=== PATIENT | female | born 1960 | race Caucasian/White ===

== ENCOUNTER 2017-12-21 05:21 | Inpatient (IN) | payer BC ==
[2017-12-21] MEDS ORDERED: SODIUM CHLORIDE 1,000 ML IV STA (05:22)
[2017-12-21] MEDS ORDERED: ONDANSETRON 4 MG/2 ML VIAL IVPB ONE (05:23)
[2017-12-21] MEDS ORDERED: ACETAMINOPHEN 1000 MG/100 ML VIAL (NON FORMULARY) IVPB ONE (05:23)
--- NOTE | 2017-12-21 05:29 | PDOC ---
History of Present Illness - General Chief Complaint: Pain, Acute Stated Complaint: R SIDED ABD PAIN Time Seen by Provider: 12/21/17 05:21 History Source: Patient Exam Limitations: No Limitations - History of Present Illness Initial Comments: 12/21/17 05:24 MS Loza is a 57-year-old female with no significant past medical history presented to emergency department with a complaint of severe right-sided upper abdominal pain. Patient states her symptoms began approximately 1 PM yesterday after having lunch (fish in lemon sauce). She noted a gradual onset of right upper quadrant pain. Pending is described as sharp, no radiation. Pt had dinner (chicken, sweet potatoes with butter) Pt had continued pain, took Tylenol late in the evening, was able to go to bed at approximately 10 PM. She awoke at 3 AM in order to use the bathroom, and noted severe right upper quadrant pain. Pain was so severe that it caused her to feel nauseous. No vomiting. No prior episodes like this. No fever or chills. No recent travel, lower extremity edema, immobilization, recent surgery. Pt admits to a history of occasional GERD She has noted epigastric discomfort/bloating for a few days PMH: Denies PSH: Bilateral replacements Medication: Nexium when necessary ALLERGIES: Penicillin --> reaction unknown, apparently lips turned blue after taking this at age 3 Patient is sensitive to narcotics Social: Denies alcohol, drug, cigarette use GENERAL/CONSTITUTIONAL: No: fever, chills, weakness, loss of appetite. HEAD, EYES, EARS, NOSE AND THROAT: No: change in vision, ear pain, discharge, sore throat, throat swelling. CARDIOVASCULAR: No: chest pain, lightheadedness, palpitations, syncope RESPIRATORY: No: cough, shortness of breath, wheezing, hemoptysis, stridor. GASTROINTESTINAL: yes: nausea, vomiting, abdominal pain No: diarrhea, constipation. GENITOURINARY: No: dysuria, hematuria, frequency, urgency, flank pain. MUSCULOSKELETAL: No: back pain SKIN : No: lesions, pallor, rash or easy bruising. NEUROLOGIC: No: headache, vertigo, paresthesias, weakness GENERAL: The patient is in no acute distress, pt appears to be very uncomfortable, tearful . HEAD: Normal EYES: PERRLA, EOMI, sclera anicteric, conjunctiva clear. ENT: Ears normal, nares patent, oropharynx clear without exudates. Moist mucous membranes. NECK: Normal range of motion, supple without lymphadenopathy, JVD, or masses. LUNGS: Breath sounds equal, clear to auscultation bilaterally. No wheezes, and no crackles. HEART:Regular rate and rhythm, normal S1 and S2 without murmur, rub or gallop. ABDOMEN: Soft, very tender in RUQ to palpation, (+) Collado's sign, epigastric tenderness, no tenderness in any other quadrant EXTREMITIES: Normal range of motion, no edema. No clubbing or cyanosis. No erythema, or tenderness. NEUROLOGICAL: Cranial nerves II through XII grossly intact. Normal speech. No focal neurological deficits. MUSCULOSKELETAL: Back non-tender to palpation, no CVA tenderness SKIN: Warm, Dry, normal turgor, no rashes or lesions noted. 12/21/17 07:08 Past History - Past Medical History Allergies/Adverse Reactions: Allergies Allergy/AdvReac Type Severity Reaction Status Date / Time Penicillins Allergy Issues Verified 12/21/17 09:48 with breathing Home Medications: Ambulatory Orders Levofloxacin [Levaquin] 750 mg PO DAILY 4 Days #4 tablet 12/24/17 Ondansetron HCl [Zofran] 4 mg PO BID PRN #10 tablet 12/24/17 metroNIDAZOLE [Flagyl -] 500 mg PO Q8H #21 tablet 12/24/17 HTN: Yes - Surgical History Orthopedic Surgery: Yes (bilateral TKR) - Suicide/Smoking/Psychosocial Hx Smoking History: Never smoked ED Treatment Course - LABORATORY CBC & Chemistry Diagram: 12/24/17 07:46 12/24/17 06:30 Medical Decision Making - Medical Decision Making 12/21/17 05:29 Ms Loza presented to emergency department with a complaint of severe right upper quadrant pain. Differential diagnosis includes but is not limited to: Biliary colic, cholangitis, pancreatitis, small bowel traction, colitis of limited section of ascending colon. I have entertained possibility of RLL Pneumonia or PE (given pt states pain worsens with deep breath), however, no hypoxia, no respiratory distress, no sputum production, no PE risk factors Will do: Labs UA Right upper quadrant ultrasound CT of the abdomen and pelvis Will give fluids Patient has sensitivity to Morphine, will start with Tylenol IV Will give Pepcid as well given gastritis Will give Zofran for nausea 12/21/17 05:25AM Topology Professor called 12/21/17 05:30AM Returned call, she is aware patient is in the ER 12/21/17 06:21 Pain is now 4/10 Labs pending 12/21/17 06:26 Laboratory Tests 12/21/17 05:30 Urine Ketones Negative Urine Blood 2+ H Urine Nitrite Negative Ur Leukocyte Esterase Trace 12/21/17 06:27 U/S called to scrap picker this patient 12/21/17 06:37 Laboratory Tests 12/21/17 12/21/17 05:30 05:50 WBC 10.5 H Hgb 13.9 Hct 40.9 Plt Count 187 Neutrophils % 83.2 H Ur Leukocyte Esterase Trace Urine WBC (Auto) 3 Urine RBC (Auto) 16 12/21/17 06:59 EKG: Sinus bradycardia, rate of 57 bpm, axis is normal, intervals are normal, no ST elevations or depressions, T waves are normal 12/21/17 07:22 Laboratory Tests 12/21/17 12/21/17 05:30 05:30 Sodium 139 Potassium 4.1 Chloride 100 Carbon Dioxide 25 Anion Gap 14 BUN 15 Creatinine 0.7 Random Glucose 99 AST 29 ALT 65 Creatine Kinase 90 Total Amylase 29 Lipase [address] pending Pt signed out to Dr Jon *DC/Admit/Observation/Transfer Diagnosis at time of Disposition: Diverticulitis large intestine - Discharge Dispostion Disposition: HOME Condition at time of disposition: Stable - Prescriptions - Referrals - Patient Instructions - Post Discharge Activity
[2017-12-21] MEDS ORDERED: FAMOTIDINE 20 MG/50 ML IVPB 0 MG/0 ML MG IVPB ONE (05:32)
[2017-12-21] MEDS ORDERED: ONDANSETRON 4 MG/2 ML VIAL ONE ×2 (05:32→12:04)
[2017-12-21] MEDS ORDERED: ACETAMINOPHEN INJECTION 100 ML IVPB ONE (05:32)
[2017-12-21] MEDS ORDERED: FAMOTIDINE 20 MG/50 ML IVPB 20 MG/50 ML MG IVPB ONE ×2 (05:33→09:36)
[2017-12-21 06:23] LABS: URINE APPEARANCE CLEAR; URINE BILIRUBIN NEGATIVE (NEGATIVE); URINE BLOOD 2+ (NEGATIVE); URINE COLOR LTYELLOW; URINE GLUCOSE (UA) NEGATIVE (NEGATIVE); URINE KETONE NEGATIVE (NEGATIVE); URINE LEUK ESTERASE TRACE (NEGATIVE); URINE NITRITE NEGATIVE (NEGATIVE); URINE PROTEIN NEGATIVE (NEGATIVE); URINE UROBILINOGEN NEGATIVE mg/dL (0.2-1.0)
[2017-12-21 06:25] LABS: BASO % 0.3 % (0-2.0); EOS % 0.9 % (0-4.5); HEMATOCRIT 40.9 % (32.4-45.2); HEMOGLOBIN 13.9 GM/dL (10.7-15.3); LYMPH % 9.6 % (8-40); MCH 30.3 pg (25.7-33.7); MEAN CELL VOLUME 89.1 fl (80-96); MEAN PLT VOLUME 9.8 fl (7.5-11.1); NEUT % 83.2 % (42.8-82.8); PLATELET COUNT 187 K/MM3 (134-434); RBC 4.59 M/mm3 (3.60-5.2); RDW 13.8 % (11.6-15.6); WHITE BLOOD COUNT 10.5 K/mm3 (4.0-10.0)
[2017-12-21 06:30] LABS: EPI CELLS RARE /HPF (FEW); INR 1.07 (0.82-1.09); PROTHROMBIN TIME (PATIENT) 12.1 SEC (9.98-11.88); URINE BACTERIA RARE /hpf (NONE SEEN); URINE MUCUS RARE
[2017-12-21 07:09] LABS: ALBUMIN 4.2 g/dl (3.4-5.0); ANION GAP 14 (8-16); BILIRUBIN,TOTAL 0.8 mg/dL (0.2-1.0); BLOOD UREA NITROGEN 15 mg/dL (7-18); CALCIUM 9.3 mg/dL (8.5-10.1); CHLORIDE 100 mmol/L (98-107); CO2 25 mmol/L (21-32); CREATININE 0.7 mg/dL (0.55-1.02); GLUCOSE,RANDOM 99 mg/dL (74-106); LIPASE 183 U/L (73-393); SGPT/ALT 65 U/L (12-78); SODIUM 139 mmol/L (136-145); TOT PROT 7.8 g/dl (6.4-8.2)
[2017-12-21 07:12] LABS: ALK PHOS 83 U/L (45-117)
[2017-12-21 07:16] LABS: POTASSIUM 4.1 mmol/L (3.5-5.1); SGOT/AST 29 U/L (15-37)
[2017-12-21] MEDS ORDERED: FAMOTIDINE IV 20 MG/12 ML VIAL IVPUSH SCH (10:00)
--- NOTE | 2017-12-21 10:19 | PDOC ---
*Physical Exam - Vital Signs Last Vital Signs Temp Pulse Resp BP Pulse Ox 98.1 F 63 18 115/68 98 12/21/17 09:15 12/21/17 09:15 12/21/17 09:15 12/21/17 09:15 12/21/17 09:15 ED Treatment Course - LABORATORY CBC & Chemistry Diagram: 12/21/17 05:50 12/21/17 05:30 - ADDITIONAL ORDERS Additional order review: Laboratory Results 12/21/17 12/21/17 12/21/17 05:30 05:30 05:30 PT with INR INR Sodium 139 Potassium 4.1 Chloride 100 Carbon Dioxide 25 Anion Gap 14 BUN 15 Creatinine 0.7 Creat Clearance w eGFR > 60 Random Glucose 99 Calcium 9.3 Total Bilirubin 0.8 AST 29 ALT 65 Alkaline Phosphatase 83 Creatine Kinase 90 Troponin I < 0.02 Total Protein 7.8 Albumin 4.2 Total Amylase 29 Lipase 183 Urine Color Ltyellow Urine Appearance Clear Urine pH 6.0 Ur Specific [place] 1.012 Urine Protein Negative Urine Glucose (UA) Negative Urine Ketones Negative Urine Blood 2+ H Urine Nitrite Negative Urine Bilirubin Negative Urine Urobilinogen Negative Ur Leukocyte Esterase Trace Urine WBC (Auto) 3 Urine RBC (Auto) 16 Ur Epithelial Cells Rare Urine Bacteria Rare Urine Mucus Rare 12/21/17 05:30 PT with INR 12.10 H INR 1.07 Sodium Potassium Chloride Carbon Dioxide Anion Gap BUN Creatinine Creat Clearance w eGFR Random Glucose Calcium Total Bilirubin AST ALT Alkaline Phosphatase Creatine Kinase Troponin I Total Protein Albumin Total Amylase Lipase Urine Color Urine Appearance Urine pH Ur Specific [place] Urine Protein Urine Glucose (UA) Urine Ketones Urine Blood Urine Nitrite Urine Bilirubin Urine Urobilinogen Ur Leukocyte Esterase Urine WBC (Auto) Urine RBC (Auto) Ur Epithelial Cells Urine Bacteria Urine Mucus 12/21/17 05:50 RBC 4.59 MCV 89.1 MCHC 34.0 RDW 13.8 MPV 9.8 Neutrophils % 83.2 H Lymphocytes % 9.6 Monocytes % 6.0 Eosinophils % 0.9 Basophils % 0.3 - Medications Given in the ED: ED Medications Discontinued Medications Generic Name Dose Route Start Last Admin Trade Name Freq PRN Reason Stop Dose Admin Acetaminophen 1,000 mg 12/21/17 05:23 12/21/17 05:31 Ofirmev Injection - IVPB 12/21/17 05:24 1,000 mg ONCE ONE Administration Ondansetron HCl 4 mg 12/21/17 05:23 12/21/17 05:31 Zofran Injection IVPB 12/21/17 05:24 4 mg ONCE ONE Administration Medical Decision Making - Medical Decision Making 12/21/17 10:08 Care received at 0700 Briefly, pt presents with RUQ and epigastric abd pain. Labs wnl, including normal LFTs and lipase/amylase. UA with 3+ blood, no evidence of infection. US reveals dilated CBD with GB sludge. CTAP reveals acute uncomplicated diverticulitis of the hepatic flexure. Levaquin and flagyl hanging. Dr. Conner from GI has been called to discuss CBD dilation and acute diverticulits. Spoke with Dr. Hope who is on his way in for evaluation. Case discussed with MICHA Barahona, pt accepted for admission to Dr. Paulson. 12/21/17 10:[address] Conner, she will be here in approx 30 mins. *DC/Admit/Observation/Transfer Diagnosis at time of Disposition: Diverticulitis large intestine - Discharge Dispostion Condition at time of disposition: Stable Admit: Yes - Referrals Referrals: Carlyle Hightower MD [Primary Care Provider] - - Patient Instructions - Post Discharge Activity - Attestations Physician Attestion: 12/21/17 10:20 I, Dr. Maria Teresa Jon MD, attest that this document has been prepared under my direction and personally reviewed by me in its entirety. I further attest, that it accurately reflects all work, treatment, procedures and medical decision -making performed by me.
--- NOTE | 2017-12-21 11:46 | CON.GI ---
Consult Consult Specialty:: gastroenterology Reason for Consultation:: abdominal pain. dypepsia - History of Present Illness Chief Complaint: abdominal pain History of Present Illness: Mrs. Loza is a 57 year old woman who presents to the ER with complaints of intermittent RUQ abdominal pain. Her symptoms worsened overnight prompting her to come to the ER for evaluation. She states she has also been experiencing epigastric abdominal discomfort, nausea and reflux as well as the sensation of food sticking in her lower esophagus. She has never had an endoscopic evaluation in the past. - History Source History Provided By: Patient Limitations to Obtaining History: No Limitations - Past Medical History Gastrointestinal: Yes: Diverticulosis, GERD - Past Surgical History Additional Surgical History: n/c - Alcohol/Substance Use Hx Alcohol Use: No History of Substance Use: reports: None - Smoking History Smoking history: Never smoked Have you smoked in the past 12 months: No Aproximately how many cigarettes per day: 0 - Social History Usual Living Arrangement: With Spouse Home Medications - Allergies Allergies/Adverse Reactions: Allergies Allergy/AdvReac Type Severity Reaction Status Date / Time Penicillins Allergy Issues Verified 12/21/17 09:48 with breathing - Home Medications Home Medications: Ambulatory Orders NK [No Known Home Medication] 02/21/17 Family Disease History - Family Disease History Family History: Unremarkable Review of Systems - Review of Systems Gastrointestinal: reports: Abdominal Pain, Bloating, Dysphagia, Indigestion, Nausea Physical Exam-GI Vital Signs: Vital Signs Temperature 98.1 F 12/21/17 09:15 Pulse Rate 63 12/21/17 09:15 Respiratory Rate 18 12/21/17 09:15 Blood Pressure 115/68 12/21/17 09:15 O2 Sat by Pulse Oximetry (%) 98 12/21/17 09:15 Constitutional: Yes: Well Nourished, No Distress, Calm Eyes: Yes: WNL HENT: Yes: WNL Cardiovascular: Yes: WNL, Regular Rate and Rhythm Respiratory: Yes: WNL, Regular ...Auscultate: Yes: Normoactive Bowel Sounds ...Palpate: Yes: Soft, Tenderness, Rebound (RUQ tenderness without rebound or guarding; nml bowel sounds) Extremities: Yes: WNL Edema: No Labs: CBC, BMP 12/21/17 05:50 12/21/17 05:30 INR, PTT INR 1.07 (0.82-1.09) 12/21/17 05:30 Imaging - Results Cat Scan: Report Reviewed, Image Reviewed Problem List - Problems (1) Dyspepsia and disorder of function of stomach Code(s): K31.9 - DISEASE OF STOMACH AND DUODENUM, UNSPECIFIED; R10.13 - EPIGASTRIC PAIN Assessment/Plan Impression: 1. Acute uncomplicated diverticulitis 2. Dyspepsia Recommendation: - clear liquid diet today ; if tolerates and is pain free advance to full liquid lactose free diet tomorrow - c/w levaquin and flagyl - course of 10 days - protonix 40 mg IV qd - 1/2 hr prior to breakfast daily - zofran prn - will need a diagnostic egd / colonoscopy in 6- 8 weeks. - will follow this patient closely with you.
[2017-12-21] MEDS ORDERED: ONDANSETRON 4 MG/2 ML VIAL IVPUSH ONE (12:08)
--- NOTE | 2017-12-21 12:32 | CONS ---
DATE OF CONSULTATION: DATE OF DICTATION: 12/21/2017 REASON FOR CONSULTATION: Abdominal pain. REFERRING PHYSICIAN: Maria Teresa Jon MD BRIEF HISTORY: This is a 57-year-old female whose history dates back approximately 1-/2 to 2 weeks ago. At that time, the patient had slight decrease in appetite and progressive bloating but no abdominal pain. Yesterday around 1 o'clock she developed sharp abdominal pain in the right upper quadrant just below the right costal margin. Patient thought she had pulled a muscle and as the day progressed the pain had worsened. The patient had dinner last evening (regular diet, however decreased amount). She had mild anorexia prior to dinner as well. Patient taking some Tylenol prior to going to bed which relieved the pain a little bit and she woke up early in the evening with worsening pain in the right side associated with nausea but no actual vomiting. Patient presented to the emergency room with these complaints. She underwent a CAT scan of the abdomen and pelvis; the CT demonstrated findings consistent with right-sided acute diverticulitis at the level of the hepatic flexure. There is no free fluid, no free air. She also had an ultrasound of the abdomen performed through the emergency room. The ultrasound demonstrated some sludge in the gallbladder. There is no evidence of acute cholecystitis. However, the truck driver supervisor noted a positive Collado sign and clinical correlation was needed. The patient had mild borderline dilatation of the common duct at 6 mm and further evaluation was suggested based on the sonography. She had a leukocytosis of roughly 10,000 at the time of admission. She has no bandemia. Her bicarbonate is normal at 25 and she had normal anion gap as well. Currently, the patient states her abdominal pain was improved with some IV Tylenol. She is not nauseous. She had no fever in the emergency room. PAST MEDICAL HISTORY: Patient denies coronary disease, hypertension and diabetes. PAST SURGICAL HISTORY: Bilateral knee replacements. MEDICATIONS: Nexium on an as-needed basis. ALLERGIES: PENICILLIN. SOCIAL HISTORY: Patient denies tobacco, alcohol and drug use. PHYSICAL EXAMINATION: HEENT: There is no icterus. Abdomen: Soft. There is right-sided abdominal tenderness just below the right costal margin. This is noted to be in the anterior axillary line. The abdominal pain is associated with some mild guarding without true rebound. The remainder of the abdominal examination is unremarkable. Incidentally noted is a small umbilical hernia. IMPRESSION/PLAN: Suspect right-sided acute diverticulitis. At this point, the patient clearly does not need urgent surgery and she demonstrates no sign of sepsis. There is no CT finding consistent with sepsis as well. The mild dilatation in the duct could be related to the findings from the colon. However, an ultrasound in the future once this process resolves should be performed. At that time, if the duct is still mildly dilated a further evaluation by GI should be done either via MRCP or ERCP. With regard to this acute problem, I think this should improve with medical management, patient should be at bowel rest and IV antibiotics (already started Levaquin and Flagyl). I will reevaluate this patient on a daily basis. Further recommendations will be made daily. Thank you for allowing me to participate in the care of your patient. MELISSA CHAN M.D. [id number] cc: The hospitalist service
--- NOTE | 2017-12-21 14:03 | HP ---
CHIEF COMPLAINT: abdominal pain PCP: Dr Hightower HISTORY OF PRESENT ILLNESS: Patient is a 57 y/o female with no significant past medical history, reports with severe sharp non-radiating right upper abdominal pain since 300am on this date. She reports the pain started yesterday, 12/20/17, but the pain gradually increased throughout the evening and has been unrelieved with tylenol. In addition, she reports feeling bloated with indigestion after eating for the past several months. patient denies any vomiting. She denies any recent travel or sick contacts. ER course was notable for: (1) wbc 10.5 (2)ct of abd/pelvis acute uncomplicated diverticulitis, diffuse heatic steatosis (3)ultrasound of abd, fatty livers vs hepatocellular disease, minimal sludge,no evidence of acute levar, borderline cbd dilation Recent Travel: none PAST MEDICAL HISTORY: see hpi PAST SURGICAL HISTORY: bilateral knee replacement Social History: , mother of 2 adult children, resides at home with Smoking:none Alcohol:none Drugs: none Family History: mother-->alive and well, irritable bowel father---> [place] Allergies Penicillins Allergy (Verified 12/21/17 09:48) Issues with breathing HOME MEDICATIONS: Home Medications Medication Instructions Recorded NK [No Known Home Medication] 02/21/17 REVIEW OF SYSTEMS CONSTITUTIONAL: Absent: fever, chills, diaphoresis, generalized weakness, malaise, loss of appetite, weight change HEENT: Absent: rhinorrhea, nasal congestion, throat pain, throat swelling, difficulty swallowing, mouth swelling, ear pain, eye pain, visual changes CARDIOVASCULAR: Absent: chest pain, syncope, palpitations, irregular heart rate, lightheadedness , peripheral edema RESPIRATORY: Absent: cough, shortness of breath, dyspnea with exertion, orthopnea, wheezing, stridor, hemoptysis GASTROINTESTINAL: present: abdominal pain, Absent: abdominal distension, nausea, vomiting, diarrhea, constipation, melena, hematochezia GENITOURINARY: Absent: dysuria, frequency, urgency, hesitancy, hematuria, flank pain, genital pain MUSCULOSKELETAL: Absent: myalgia, arthralgia, joint swelling, back pain, neck pain SKIN: Absent: rash, itching, pallor HEMATOLOGIC/IMMUNOLOGIC: Absent: easy bleeding, easy bruising, lymphadenopathy, frequent infections ENDOCRINE: Absent: unexplained weight gain, unexplained weight loss, heat intolerance, cold intolerance NEUROLOGIC: Absent: headache, focal weakness or paresthesias, dizziness, unsteady gait, seizure, mental status changes, bladder or bowel incontinence PSYCHIATRIC: Absent: anxiety, depression, suicidal or homicidal ideation, hallucinations. PHYSICAL EXAMINATION Vital Signs - 24 hr 12/21/17 12/21/17 12/21/17 05:23 09:15 12:00 Temperature 98 F 98.1 F Pulse Rate 88 Pulse Rate [ 63 60 Apical] Respiratory 14 18 18 Rate Blood Pressure 107/60 Blood Pressure 115/68 118/68 [Arm] O2 Sat by Pulse 100 98 98 Oximetry (%) GENERAL: Awake, alert, and fully oriented, in no acute distress. HEAD: Normal with no signs of trauma. EYES: Pupils equal, round and reactive to light, extraocular movements intact, sclera anicteric, conjunctiva clear. No lid lag. EARS, NOSE, THROAT: Ears normal, nares patent, oropharynx clear without exudates. Moist mucous membranes. NECK: Normal range of motion, supple without lymphadenopathy, JVD, or masses. LUNGS: Breath sounds equal, clear to auscultation bilaterally. No wheezes, and no crackles. No accessory muscle use. HEART: Regular rate and rhythm, normal S1 and S2 without murmur, rub or gallop. ABDOMEN: Soft, + rebound tenderness to epigastrium and right upper quadrent, not distended, normoactive bowel sounds, no guarding, no rebound, no masses. No hepatomegaly or splenomegaly. MUSCULOSKELETAL: Normal range of motion at all joints. No bony deformities or tenderness. No CVA tenderness. UPPER EXTREMITIES: 2+ pulses, warm, well-perfused. No cyanosis. No clubbing. No peripheral edema. LOWER EXTREMITIES: 2+ pulses, warm, well-perfused. No calf tenderness. No peripheral edema. NEUROLOGICAL: Cranial nerves II-XII intact. Normal speech. Normal gait. PSYCHIATRIC: Cooperative. Good eye contact. Appropriate mood and affect. SKIN: Warm, dry, normal turgor, no rashes or lesions noted, normal capillary refill. Laboratory Results - last 24 hr 12/21/17 12/21/17 12/21/17 05:30 05:30 05:30 WBC RBC Hgb Hct MCV MCH MCHC RDW Plt Count MPV Neutrophils % Lymphocytes % Monocytes % Eosinophils % Basophils % PT with INR 12.10 H INR 1.07 Sodium 139 Potassium 4.1 Chloride 100 Carbon Dioxide 25 Anion Gap 14 BUN 15 Creatinine 0.7 Creat Clearance w eGFR > 60 Random Glucose 99 Calcium 9.3 Total Bilirubin 0.8 AST 29 ALT 65 Alkaline Phosphatase 83 Creatine Kinase 90 Troponin I < 0.02 Total Protein 7.8 Albumin 4.2 Total Amylase Lipase 183 Urine Color Ltyellow Urine Appearance Clear Urine pH 6.0 Ur Specific [place] 1.012 Urine Protein Negative Urine Glucose (UA) Negative Urine Ketones Negative Urine Blood 2+ H Urine Nitrite Negative Urine Bilirubin Negative Urine Urobilinogen Negative Ur Leukocyte Esterase Trace Urine WBC (Auto) 3 Urine RBC (Auto) 16 Ur Epithelial Cells Rare Urine Bacteria Rare Urine Mucus Rare 12/21/17 12/21/17 05:30 05:50 WBC 10.5 H RBC 4.59 Hgb 13.9 Hct 40.9 MCV 89.1 MCH 30.3 MCHC 34.0 RDW 13.8 Plt Count 187 MPV 9.8 Neutrophils % 83.2 H Lymphocytes % 9.6 Monocytes % 6.0 Eosinophils % 0.9 Basophils % 0.3 PT with INR INR Sodium Potassium Chloride Carbon Dioxide Anion Gap BUN Creatinine Creat Clearance w eGFR Random Glucose Calcium Total Bilirubin AST ALT Alkaline Phosphatase Creatine Kinase Troponin I Total Protein Albumin Total Amylase 29 Lipase Urine Color Urine Appearance Urine pH Ur Specific [place] Urine Protein Urine Glucose (UA) Urine Ketones Urine Blood Urine Nitrite Urine Bilirubin Urine Urobilinogen Ur Leukocyte Esterase Urine WBC (Auto) Urine RBC (Auto) Ur Epithelial Cells Urine Bacteria Urine Mucus ASSESSMENT/PLAN: 1) GI acute diverticulitis - + tenderness noted on exam w/leukocytosis, start levaquin and flagyl - slight leukocytosis noted, strict monitoring, monitor fever curve - pt has never had a colonscopy appreciate GI input - surgery, Dr Carrillo consulted and following GERD - carafate and protonix f/e/n - clear liquid diet - replete lytes prn ppx - oob - scd dispo: requires inpatient admisison. Visit type - Emergency Visit Emergency Visit: Yes ED Registration Date: 12/21/17 Care time: The patient presented to the Emergency Department on the above date and was hospitalized for further evaluation of their emergent condition. - New Patient This patient is new to me today: Yes Date on this admission: 12/21/17 - Critical Care Critical Care patient: No Hospitalist Screening - Colonoscopy Questionnaire Colonoscopy Questionnaire: Colonoscopy Questionnaire - Patient: 50 - 75 years old and never had a screening colonoscopy: Yes History of colon or rectal polyps, or CA: No History of IBD, Crohn's disease or UC: No History of abdominal radiation therapy as a child: No - Relative: 1 with colon or rectal CA, or polyps at age 60 or younger: No Colon or rectal CA diagnosed at age 45 or younger: No Multiple relatives with colon or rectal CA: No - Outcome: Screening Result: Positive Screen
[2017-12-21 14:24] VITALS: BMI 29.2
[2017-12-21] MEDS ORDERED: SUCRALFATE 1 GM TABLET (FP) PO SCH (15:30)
[2017-12-21] MEDS: SUCRALFATE 1 GM/10 ML UNIT DOSE CUPS PO SCH ×3 (15:55→21:52)
[2017-12-21] MEDS ORDERED: MELATONIN 5 MG TABLETS PO PRN (16:05)
[2017-12-21] MEDS: ACETAMINOPHEN 325 MG TABLET (FP) PO PRN (17:08)
[2017-12-21] MEDS ORDERED: morphine CARPU-JECT 2 MG/1 ML DISP.SYRIN IVPUSH PRN (17:18)
[2017-12-21] MEDS: LACTOBACILLUS ACIDOPHILUS 1 EACH TAB (FP) PO SCH (17:59)
[2017-12-21] MEDS: PANTOPRAZOLE SODIUM 40 MG VIAL IVPUSH SCH (17:59)
[2017-12-21] MEDS: SODIUM CHLORIDE 1,000 ML IV SCH (17:59)
[2017-12-21] MEDS ORDERED: FAMOTIDINE 20 MG/50 ML IVPB 20 MG/50 ML MG IVPB SCH (22:00)
[2017-12-22] MEDS: ACETAMINOPHEN 325 MG TABLET (FP) PO PRN ×2 (05:25→12:59)
[2017-12-22 09:35] LABS: ALBUMIN 3.4 g/dl (3.5-5.0); ALK PHOS 53 U/L (32-92); ANION GAP 6 (8-16); BILIRUBIN,TOTAL 1.2 mg/dl (0.2-1.0); BLOOD UREA NITROGEN 12 mg/dl (7-18); CALCIUM 8.5 mg/dl (8.4-10.2); CHLORIDE 104 mmol/L (98-107); CO2 24 mmol/L (22-28); CREATININE 0.8 mg/dl (0.6-1.3); GLUCOSE,RANDOM 99 mg/dl (74-106); MAGNESIUM 1.7 mg/dL (1.8-2.4); POTASSIUM 3.5 mmol/L (3.5-5.1); SGOT/AST 18 U/L (10-42); SGPT/ALT 36 U/L (10-40); SODIUM 134 mmol/L (136-145); TOT PROT 6.3 g/dl (6.4-8.3)
[2017-12-22] MEDS: PANTOPRAZOLE SODIUM 40 MG VIAL IVPUSH SCH (09:40)
[2017-12-22] MEDS: SUCRALFATE 1 GM/10 ML UNIT DOSE CUPS PO SCH ×4 (09:40→21:43)
[2017-12-22] MEDS: LACTOBACILLUS ACIDOPHILUS 1 EACH TAB (FP) PO SCH (09:40)
--- NOTE | 2017-12-22 09:58 | EKG ---
Test Reason : Blood Pressure : / mmHG Vent. Rate : 057 BPM Atrial Rate : 057 BPM P-R Int : 142 ms QRS Dur : 082 ms QT Int : 438 ms P-R-T Axes : 017 005 009 degrees QTc Int : 426 ms SINUS BRADYCARDIA NO PREVIOUS ECGS AVAILABLE Confirmed by STEPHANIE CROCKETT MD ([id number]) on 12/22/2017 9:57:59 AM Referred By: MD CAPUTO Confirmed By:STEPHANIE CROCKETT MD
[2017-12-22] MEDS ORDERED: POTASSIUM CHLORIDE TABS 20 MEQ TABLET.ER (FP) PO ONE ×2 (10:03→13:00)
[2017-12-22] MEDS ORDERED: MAGNESIUM 1GM/D5W 100ML - 100 ML IVPB IVPB ONE ×2 (10:03→13:00)
--- NOTE | 2017-12-22 10:59 | PN ---
Progress Note (short form) - Note Progress Note: surgery pt seen and examined by Dr. Hope this morning. Started on liquids. pain has mostly resolved. afebrile abd- soft, minimal tenderness. nd. Plan- resolving right sided diverticulitis. cont medical managment. will be available.
--- NOTE | 2017-12-22 11:12 | PN ---
Physical Exam: SUBJECTIVE: Patient seen and examined, reports an improvement in abdominal pain , tolerating clear liquid diet, reports feeling hungry. OBJECTIVE: patient is a 57 y/o female, with no significant past medical history , patient was admitted from the emergency department for acute diverticulitis Vital Signs Period Temp Pulse Resp BP Sys/Santillan Pulse Ox Last 24 Hr 98.0 F-99.4 F 60-79 16-20 108-123/56-80 94-98 GENERAL: The patient is awake, alert, and fully oriented, in no acute distress. HEAD: Normal with no signs of trauma. EYES: PERRL, extraocular movements intact, sclera anicteric, conjunctiva clear. No ptosis. ENT: Ears normal, nares patent, oropharynx clear without exudates, moist mucous membranes. NECK: Trachea midline, full range of motion, supple. LUNGS: Breath sounds equal, clear to auscultation bilaterally, no wheezes, no crackles, no accessory muscle use. HEART: Regular rate and rhythm, S1, S2 without murmur, rub or gallop. ABDOMEN: Soft, mild diffuse abdominal tenderness, nondistended, normoactive bowel sounds, no guarding, no rebound, no hepatosplenomegaly, no masses. EXTREMITIES: 2+ pulses, warm, well-perfused, no edema. NEUROLOGICAL: Cranial nerves II through XII grossly intact. Normal speech, gait not observed. PSYCH: Normal mood, normal affect. SKIN: Warm, dry, normal turgor, no rashes or lesions noted Laboratory Results - last 24 hr 12/22/17 07:50 Sodium 134 L Potassium 3.5 Chloride 104 Carbon Dioxide 24 Anion Gap 6 L BUN 12 D Creatinine 0.8 Creat Clearance w eGFR > 60 Random Glucose 99 Calcium 8.5 Phosphorus 3.0 Magnesium 1.7 L Total Bilirubin 1.2 H D AST 18 D ALT 36 Alkaline Phosphatase 53 Total Protein 6.3 L Albumin 3.4 L CBC WBC 9.2 K/mm3 (4.0-10.8) D 12/22/17 07:50 RBC 4.01 M/mm3 (3.60-5.2) 12/22/17 07:50 Hgb 11.9 GM/dl (10.7-15.3) 12/22/17 07:50 Hct 35.6 % (32.4-45.2) 12/22/17 07:50 MCV 88.7 fl (80-96) 12/22/17 07:50 MCH 29.5 pg (25.7-33.7) 12/22/17 07:50 MCHC 33.3 g/dl (32.0-36.0) 12/22/17 07:50 RDW 13.1 % (11.6-15.6) 12/22/17 07:50 Plt Count 174 K/MM3 (134-434) 12/22/17 07:50 MPV 9.8 fl (7.5-11.1) 12/22/17 07:50 Neutrophils % 79.8 % (42.8-82.8) 12/22/17 07:50 Lymphocytes % 14.6 % (8-40) 12/22/17 07:50 Monocytes % 4.7 % (3.8-10.2) 12/22/17 07:50 Eosinophils % 0.6 % (0-4.5) 12/22/17 07:50 Basophils % 0.3 % (0-2.0) 12/22/17 07:50 Active Medications Generic Name Dose Route Start Last Admin Trade Name Freq PRN Reason Stop Dose Admin Acetaminophen 650 mg 12/21/17 14:07 12/22/17 05:25 Tylenol - PO 650 mg Q4H PRN Administration PAIN LEVEL 1-5 Metronidazole 500 mg in 100 mls @ 100 mls/hr 12/21/17 18:00 12/22/17 09:41 Flagyl 500mg Premixed Ivpb - IVPB 100 mls/hr Q8H-IV CHARLI Administration Levofloxacin 750 mg in 150 mls @ 150 mls/hr 12/22/17 10:00 12/22/17 09:40 Levaquin 750 Mg Premixed Ivpb - IVPB 150 mls/hr DAILY CHARLI Administration Sodium Chloride 1,000 mls @ 75 mls/hr 12/21/17 17:30 12/21/17 17:59 Normal Saline - IV 75 mls/hr ASDIR CHARLI Administration Lactobacillus Acidophilus 1 tab 12/21/17 17:15 12/22/17 09:40 Bacid - PO 1 tab DAILY CHARLI Administration Melatonin 5 mg 12/21/17 16:05 Melatonin PO HS PRN INSOMNIA Morphine Sulfate 2 mg 12/21/17 17:18 Morphine Injection - IVPUSH Q6H PRN PAIN LEVEL 7 - 10 Pantoprazole Sodium 40 mg 12/21/17 17:15 12/22/17 09:40 Protonix Iv IVPUSH 40 mg DAILY CHARLI Administration Sucralfate 1 gm 12/21/17 15:45 12/22/17 09:40 Carafate Oral Suspension - PO 1 gm QID CHARLI Administration Microbiology 12/21/17 05:30 Urine - Urine Clean Catch Urine Culture - Final NO GROWTH OBTAINED IMAGING ct of abd/pelvis acute uncomplicated diverticulitis, diffuse heatic steatosis ultrasound of abd, fatty livers vs hepatocellular disease, minimal sludge,no evidence of acute levar, borderline cbd dilation ASSESSMENT/PLAN: 1) GI acute diverticulitis - leukocytosis resolved, pt is afebrile continue levaquin and flagyl - tolerating clear liquid diet, will advance to full - Dr Iqbal, GI consulted and following, patient will require outpatient colonscopy and endoscopy - surgery, Dr Carrillo consulted and following GERD - much improved after carafate and protonix f/e/n - full liquid diet - replete magnesium ppx - oob - scd dispo: requires inpatient admisison. Visit type - Emergency Visit Emergency Visit: Yes ED Registration Date: 12/21/17 Care time: The patient presented to the Emergency Department on the above date and was hospitalized for further evaluation of their emergent condition. - New Patient This patient is new to me today: No - Critical Care Critical Care patient: No - Discharge Referral Referred to [facility] Med P.C.: No
[2017-12-22 11:23] LABS: BASO % 0.3 % (0-2.0); EOS % 0.6 % (0-4.5); HEMATOCRIT 35.6 % (32.4-45.2); HEMOGLOBIN 11.9 GM/dl (10.7-15.3); LYMPH % 14.6 % (8-40); MCH 29.5 pg (25.7-33.7); MCHC 33.3 g/dl (32.0-36.0); MEAN CELL VOLUME 88.7 fl (80-96); MEAN PLT VOLUME 9.8 fl (7.5-11.1); MONO % 4.7 % (3.8-10.2); NEUT % 79.8 % (42.8-82.8); PLATELET COUNT 174 K/MM3 (134-434); RBC 4.01 M/mm3 (3.60-5.2); RDW 13.1 % (11.6-15.6); WHITE BLOOD COUNT 9.2 K/mm3 (4.0-10.8)
[2017-12-22] MEDS ORDERED: MAGNESIUM SULFATE IN WATER 2 GM/50 ML IVPB IVPB ONE (13:30)
--- NOTE | 2017-12-22 17:36 | PN ---
Progress Note, Physician Chief Complaint: complains of nausea - after abx; her pain has improved - Current Medication List Current Medications: Active Medications Acetaminophen (Tylenol -) 650 mg PO Q4H PRN PRN Reason: PAIN LEVEL 1-5 Last Admin: 12/22/17 12:59 Dose: 650 mg Metronidazole (Flagyl 500mg Premixed Ivpb -) 500 mg in 100 mls @ 100 mls/hr IVPB Q8H-IV [facility] Last Admin: 12/22/17 09:41 Dose: 100 mls/hr Levofloxacin (Levaquin 750 Mg Premixed Ivpb -) 750 mg in 150 mls @ 150 mls/hr IVPB DAILY [facility] Last Admin: 12/22/17 09:40 Dose: 150 mls/hr Sodium Chloride (Normal Saline -) 1,000 mls @ 75 mls/hr IV ASDIR [facility] Last Admin: 12/21/17 17:59 Dose: 75 mls/hr Lactobacillus Acidophilus (Bacid -) 1 tab PO DAILY [facility] Last Admin: 12/22/17 09:40 Dose: 1 tab Melatonin (Melatonin) 5 mg PO HS PRN PRN Reason: INSOMNIA Morphine Sulfate (Morphine Injection -) 2 mg IVPUSH Q6H PRN PRN Reason: PAIN LEVEL 7 - 10 Pantoprazole Sodium (Protonix Iv) 40 mg IVPUSH DAILY [facility] Last Admin: 12/22/17 09:40 Dose: 40 mg Sucralfate (Carafate Oral Suspension -) 1 gm PO QID [facility] Last Admin: 12/22/17 13:35 Dose: 1 gm - Objective Vital Signs: Vital Signs Temperature 97.6 F 12/22/17 14:20 Pulse Rate 77 12/22/17 14:20 Respiratory Rate 16 12/22/17 14:20 Blood Pressure 128/66 12/22/17 14:20 O2 Sat by Pulse Oximetry (%) 99 12/22/17 14:20 Constitutional: Yes: Well Nourished Eyes: Yes: WNL HENT: Yes: WNL Neck: Yes: WNL Cardiovascular: Yes: WNL Respiratory: Yes: WNL Gastrointestinal: Yes: Other (non tender , nml bowel sounds) Labs: CBC, BMP 12/22/17 07:50 12/22/17 07:50 INR, PTT INR 1.07 (0.82-1.09) 12/21/17 05:30 Problem List - Problems (1) Dyspepsia and disorder of function of stomach Code(s): K31.9 - DISEASE OF STOMACH AND DUODENUM, UNSPECIFIED; R10.13 - EPIGASTRIC PAIN (2) Diverticulitis large intestine Code(s): K57.32 - DVTRCLI OF LG INT W/O PERFORATION OR ABSCESS W/O BLEEDING Assessment/Plan Recommendation: - c/w clear liquid diet today; zofran prn added to the regimen ; advance to full liquid diet Monday (lactose free) ; If tolerates plan to advance to low residue lactose free diet by Monday. - c/w levaquin and flagyl - course of 10 days - protonix 40 mg IV qd - 1/2 hr prior to breakfast daily - will need a diagnostic egd / colonoscopy in 6- 8 weeks.
[2017-12-22] MEDS: SODIUM CHLORIDE 1,000 ML IV SCH (17:52)
[2017-12-22] MEDS: ONDANSETRON 4 MG/2 ML VIAL IVPB PRN (17:52)
[2017-12-23] MEDS: ONDANSETRON 4 MG/2 ML VIAL IVPB PRN (03:06)
[2017-12-23 08:56] LABS: BASO % 0.6 % (0-2.0); EOS % 1.3 % (0-4.5); HEMATOCRIT 36.8 % (32.4-45.2); HEMOGLOBIN 12.7 GM/dl (10.7-15.3); LYMPH % 19.5 % (8-40); MCH 30.4 pg (25.7-33.7); MCHC 34.4 g/dl (32.0-36.0); MEAN CELL VOLUME 88.2 fl (80-96); MEAN PLT VOLUME 9.2 fl (7.5-11.1); MONO % 4.6 % (3.8-10.2); PLATELET COUNT 194 K/MM3 (134-434); RBC 4.18 M/mm3 (3.60-5.2); RDW 12.9 % (11.6-15.6); WHITE BLOOD COUNT 6.3 K/mm3 (4.0-10.8)
[2017-12-23 09:21] LABS: ALBUMIN 3.5 g/dl (3.5-5.0); ALK PHOS 56 U/L (32-92); ANION GAP 9 (8-16); BILIRUBIN,TOTAL 0.6 mg/dl (0.2-1.0); BLOOD UREA NITROGEN 11 mg/dl (7-18); CALCIUM 8.8 mg/dl (8.4-10.2); CHLORIDE 106 mmol/L (98-107); CO2 22 mmol/L (22-28); CREATININE 0.8 mg/dl (0.6-1.3); GLUCOSE,RANDOM 134 mg/dl (74-106); MAGNESIUM 1.8 mg/dL (1.8-2.4); PHOSPHOROUS 2.5 mg/dl (2.5-4.6); POTASSIUM 3.8 mmol/L (3.5-5.1); SGOT/AST 19 U/L (10-42); SGPT/ALT 32 U/L (10-40); SODIUM 137 mmol/L (136-145); TOT PROT 6.6 g/dl (6.4-8.3)
[2017-12-23] MEDS: PANTOPRAZOLE SODIUM 40 MG VIAL IVPUSH SCH (09:39)
[2017-12-23] MEDS: LACTOBACILLUS ACIDOPHILUS 1 EACH TAB (FP) PO SCH (09:43)
[2017-12-23] MEDS: SUCRALFATE 1 GM/10 ML UNIT DOSE CUPS PO SCH ×4 (09:49→21:19)
--- NOTE | 2017-12-23 11:12 | PN ---
Physical Exam: SUBJECTIVE: Patient seen and examined this AM. States she is feeling much better and only has bits of nausea from ABT. OBJECTIVE: Vital Signs Period Temp Pulse Resp BP Sys/Santillan Pulse Ox Last 24 Hr 97.6 F-98.2 F 56-77 16-20 98-128/59-66 97-100 GENERAL: The patient is awake, alert, and fully oriented, in no acute distress. HEAD: Normal with no signs of trauma. LUNGS: Breath sounds equal, clear to auscultation bilaterally, HEART: Regular rate and rhythm, S1, S2 without murmur, rub or gallop. ABDOMEN: Soft, nontender, nondistended, normoactive bowel sounds, no guarding, no rebound, no hepatosplenomegaly, no masses. EXTREMITIES: 2+ pulses, warm, well-perfused, no edema. NEUROLOGICAL: Cranial nerves II through XII grossly intact. Normal speech, gait not observed. PSYCH: Normal mood, normal affect. SKIN: Warm, dry, normal turgor, no rashes or lesions noted Laboratory Results - last 24 hr 12/22/17 12/23/17 12/23/17 07:50 08:45 08:45 WBC 9.2 D 6.3 D RBC 4.01 4.18 Hgb 11.9 12.7 Hct 35.6 36.8 MCV 88.7 88.2 MCH 29.5 30.4 MCHC 33.3 34.4 RDW 13.1 12.9 Plt Count 174 194 MPV 9.8 9.2 Neutrophils % 79.8 74.0 Lymphocytes % 14.6 19.5 Monocytes % 4.7 4.6 Eosinophils % 0.6 1.3 Basophils % 0.3 0.6 Sodium 137 Potassium 3.8 Chloride 106 Carbon Dioxide 22 Anion Gap 9 BUN 11 Creatinine 0.8 Creat Clearance w eGFR > 60 Random Glucose 134 H D Calcium 8.8 Phosphorus 2.5 Magnesium 1.8 Total Bilirubin 0.6 D AST 19 ALT 32 Alkaline Phosphatase 56 Total Protein 6.6 Albumin 3.5 Active Medications Generic Name Dose Route Start Last Admin Trade Name Freq PRN Reason Stop Dose Admin Acetaminophen 650 mg 12/21/17 14:07 12/22/17 12:59 Tylenol - PO 650 mg Q4H PRN Administration PAIN LEVEL 1-5 Metronidazole 500 mg in 100 mls @ 100 mls/hr 12/21/17 18:00 03/24/18 09:40 Flagyl 500mg Premixed Ivpb - IVPB 100 mls/hr Q8H-IV CHARLI Administration Levofloxacin 750 mg in 150 mls @ 150 mls/hr 12/22/17 10:00 12/23/17 09:40 Levaquin 750 Mg Premixed Ivpb - IVPB 150 mls/hr DAILY [facility] Administration Sodium Chloride 1,000 mls @ 75 mls/hr 12/21/17 17:30 12/22/17 17:52 Normal Saline - IV 75 mls/hr ASDIR CHARLI Administration Lactobacillus Acidophilus 1 tab 12/21/17 17:15 12/23/17 09:43 Bacid - PO 1 tab DAILY CHARLI Administration Melatonin 5 mg 12/21/17 16:05 Melatonin PO HS PRN INSOMNIA Morphine Sulfate 2 mg 12/21/17 17:18 Morphine Injection - IVPUSH Q6H PRN PAIN LEVEL 7 - 10 Ondansetron HCl 4 mg 12/22/17 17:31 12/23/17 03:06 Zofran Injection IVPB 4 mg Q6H PRN Administration NAUSEA AND/OR VOMITING Pantoprazole Sodium 40 mg 12/21/17 17:15 12/23/17 09:39 Protonix Iv IVPUSH 40 mg DAILY CHARLI Administration Sucralfate 1 gm 12/21/17 15:45 12/23/17 09:49 Carafate Oral Suspension - PO 1 gm QID CHARLI Administration ASSESSMENT/PLAN: 1) GI acute diverticulitis - leukocytosis resolved, pt is afebrile continue levaquin and flagyl - tolerating full liquid lactose free diet today - Dr Iqbal, GI consulted and following, patient will require outpatient colonscopy and endoscopy - surgery, Dr Carrillo consulted and following GERD - much improved after carafate and protonix -zofran for nausea PRN f/e/n - full liquid diet and advancing tomorrow AM - replete electrolytes PRN ppx - oob - scd dispo: requires inpatient admisison. Visit type - Emergency Visit Emergency Visit: Yes ED Registration Date: 12/21/17 Care time: The patient presented to the Emergency Department on the above date and was hospitalized for further evaluation of their emergent condition. - New Patient This patient is new to me today: Yes Date on this admission: 12/23/17 - Critical Care Critical Care patient: No - Discharge Referral Referred to [facility] Med P.C.: No
[2017-12-23] MEDS ORDERED: NAPH,MB-DB/K PH,MBDB POWDER PACKET PO ONE (11:13)
[2017-12-23] MEDS: SODIUM CHLORIDE 1,000 ML IV SCH (17:53)
[2017-12-24] MEDS: ONDANSETRON 4 MG/2 ML VIAL IVPB PRN (01:14)
[2017-12-24 06:35] VITALS: BP 116/59; PULSE 60; TEMP 97.7
--- NOTE | 2017-12-24 08:17 | DS ---
Physical Exam: SUBJECTIVE: Patient seen and examined this morning. She is feeling well with no pain on inspiration or on palpation. + flatus and minimal BM as she's been taking in minimal po intake OBJECTIVE: Vital Signs Period Temp Pulse Resp BP Sys/Santillan Pulse Ox Last 24 Hr 97.6 F-97.8 F 57-65 16-16 112-118/59-67 98-100 PHYSICAL EXAM GENERAL: The patient is awake, alert, and fully oriented, in no acute distress. HEAD: Normal with no signs of trauma. LUNGS: Breath sounds equal, clear to auscultation bilaterally, HEART: Regular rate and rhythm, S1, S2 ABDOMEN: Soft, nontender, nondistended, normoactive bowel sounds, no guarding, no rebound, no hepatosplenomegaly, no masses. EXTREMITIES: 2+ pulses, warm, well-perfused, no edema. NEUROLOGICAL: Cranial nerves II through XII grossly intact. Normal speech, gait not observed. PSYCH: Normal mood, normal affect. SKIN: Warm, dry, normal turgor, no rashes or lesions noted. LABS Laboratory Results - last 24 hr 12/23/17 12/23/17 08:45 08:45 WBC 6.3 D RBC 4.18 Hgb 12.7 Hct 36.8 MCV 88.2 MCH 30.4 MCHC 34.4 RDW 12.9 Plt Count 194 MPV 9.2 Neutrophils % 74.0 Lymphocytes % 19.5 Monocytes % 4.6 Eosinophils % 1.3 Basophils % 0.6 Sodium 137 Potassium 3.8 Chloride 106 Carbon Dioxide 22 Anion Gap 9 BUN 11 Creatinine 0.8 Creat Clearance w eGFR > 60 Random Glucose 134 H D Calcium 8.8 Phosphorus 2.5 Magnesium 1.8 Total Bilirubin 0.6 D AST 19 ALT 32 Alkaline Phosphatase 56 Total Protein 6.6 Albumin 3.5 HOSPITAL COURSE: Date of Admission:12/21/17 Date of Discharge: 12/24/17 This 57 yr old female is admitted for diverticulitis without perf or abscess. She has received IV antibiotics for 3 days and is feeling much better. She started tolerating a low residue diet, ambulating and + BM started. At this time she will be discharged to continue with po antibiotics and probiotics as prescribed with follow up in her PMD and GI physicians' office. Minutes to complete discharge: 45 Discharge Summary Reason For Visit: DIVERTICULITIS OF LARGE INTESTINE Current Active Problems Diverticulitis large intestine (Acute) Dyspepsia and disorder of function of stomach (Acute) Condition: Stable - Instructions Diet, Activity, Other Instructions: Discharge instructions: 1. Please follow up with your primary doctor and let him know you have been hospitalized for a finding of diverticulitis without abscess. 2. Please follow up with the GI specialist. Call for this appointment this week. You will need to schedule a colonoscopy as well as per his recommendations. 3. Your diet should continue with a bland, low residue diet for the next couple of days adding in food items slowly to see how you tolerating them. Avoid nuts, popcorn, and foods that have a hard time breaking down in the GI track. 4. Any fever, increase abdominal pain, nausea, vomiting, excessive diarrhea or constipation, please return to the ER immediately. 5. Continue to take your antibiotics as prescribed. Do not take in any alcohol while on these medications. You can take them with foods. 6. You should add on a probiotic which you can purchase over the counter in your local pharmacy. 7. Drink plenty of water throughout the day. Referrals: Carlyle Hightower MD [Primary Care Provider] - Disposition: HOME - Home Medications Comprehensive Discharge Medication List: Ambulatory Orders NK [No Known Home Medication] 02/21/17 Problem List - Problems (1) Diverticulitis large intestine Assessment/Plan: 1) GI acute diverticulitis - leukocytosis resolved, pt is afebrile continue levaquin and flagyl at home - tolerating a low residue diet - Dr Iqbal GI to follow pt as an outpatient GERD - nexium or zantac at home PRN -zofran for nausea PRN dispo: discharge today Code(s): K57.32 - DVTRCLI OF LG INT W/O PERFORATION OR ABSCESS W/O BLEEDING Qualifiers: Diverticulitis bleeding: without bleeding Diverticulitis complication: without perforation or abscess Qualified Code(s): K57.32 - Diverticulitis of large intestine without perforation or abscess without bleeding This patient is new to me today: No Emergency Visit: Yes ED Registration Date: 12/21/17 Care time: The patient presented to the Emergency Department on the above date and was hospitalized for further evaluation of their emergent condition. Critical Care patient: No - Discharge Referral Referred to [facility] Med P.C.: No Physician Referral: Carlyle Hightower MD (Int Med)
[2017-12-24 09:03] LABS: BASO % 0.4 % (0-2.0); EOS % 2.4 % (0-4.5); HEMATOCRIT 36.5 % (32.4-45.2); HEMOGLOBIN 12.3 GM/dl (10.7-15.3); LYMPH % 25.2 % (8-40); MCHC 33.8 g/dl (32.0-36.0); MEAN CELL VOLUME 88.7 fl (80-96); MEAN PLT VOLUME 9.2 fl (7.5-11.1); MONO % 5.1 % (3.8-10.2); NEUT % 66.9 % (42.8-82.8); PLATELET COUNT 215 K/MM3 (134-434); RBC 4.11 M/mm3 (3.60-5.2); RDW 13.1 % (11.6-15.6); WHITE BLOOD COUNT 6.1 K/mm3 (4.0-10.8)
[2017-12-24 09:11] LABS: ALBUMIN 3.6 g/dl (3.5-5.0); ALK PHOS 55 U/L (32-92); ANION GAP 7 (8-16); BLOOD UREA NITROGEN 11 mg/dl (7-18); CALCIUM 8.8 mg/dl (8.4-10.2); CHLORIDE 105 mmol/L (98-107); CO2 25 mmol/L (22-28); CREATININE 0.9 mg/dl (0.6-1.3); GLUCOSE,RANDOM 97 mg/dl (74-106); POTASSIUM 3.9 mmol/L (3.5-5.1); SGOT/AST 20 U/L (10-42); SGPT/ALT 30 U/L (10-40); SODIUM 137 mmol/L (136-145); TOT PROT 6.5 g/dl (6.4-8.3)
[2017-12-24] MEDS: PANTOPRAZOLE SODIUM 40 MG VIAL IVPUSH SCH (09:21)
[2017-12-24] MEDS: SUCRALFATE 1 GM/10 ML UNIT DOSE CUPS PO SCH (09:21)
[2017-12-24] MEDS ORDERED: DOCUSATE SODIUM 100 MG CAPSULE (FP) PO ONE (09:29)
[2017-12-24] MEDS: LACTOBACILLUS ACIDOPHILUS 1 EACH TAB (FP) PO SCH (09:30)
[2017-12-24 09:37] LABS: BILIRUBIN,TOTAL < 0.5 mg/dl (0.2-1.0)
== END 2017-12-24 10:15 | disposition home or self-care (01) | DRG 392 ==
LOC: FER 05:21 → FM/S 13:25
PROVIDERS: ADMIT Internal Medicine; ATTEND Nurse Practitioner Family
DX: K57.32 Diverticulitis of large intestine without perforation or abscess without bleeding (principal); K21.9 Gastro-esophageal reflux disease without esophagitis; K31.9 Disease of stomach and duodenum, unspecified; R10.13 Epigastric pain; D72.829 Elevated white blood cell count, unspecified
CPT/HCPCS: 36415; 74177-TC; 76705-TC; 80053; 81003; 81015; 82150; 82550; 83690; 83735; 84100; 84484; 85025; 85610; 87086; 93005; 99284-25; J0131; J7030

== ENCOUNTER 2018-02-14 10:51 | Emergency (ER) | payer BC ==
[2018-02-14 10:56] VITALS: BP 135/80; PULSE 83; TEMP 98.7
[2018-02-14] MEDS ORDERED: ACETAMINOPHEN 325 MG TABLET (FP) ONE (11:43)
[2018-02-14] MEDS ORDERED: ACETAMINOPHEN 325 MG TABLET (FP) PO ONE (11:43)
--- NOTE | 2018-02-14 11:45 | PDOC ---
History of Present Illness - General Chief Complaint: Pain, Acute Stated Complaint: FALL Time Seen by Provider: 02/14/18 10:55 - History of Present Illness Initial Comments: 02/14/18 13:56 Chief complaint: Multiple injuries History of present illness: Patient fell last night on a wet floor, impacting her right hip and buttock area. Complains of persistent pain and stiffness in the right lower back, right hip. Also complains of pain and increased swelling of the left knee, status post knee replacement. Review of systems: Denies pain or injury to the head neck chest abdomen or other extremities. Denies loss of consciousness. Denies chest pain, shortness of breath, abdominal pain, nausea, vomiting, diarrhea, visual or focal neurologic symptoms, urinary tract symptoms, vaginal bleeding or discharge. Admits pain with ambulation, especially in the right hip, but denies distal numbness tingling or weakness. Past medical history: Bilateral knee replacements due to osteoarthritis in 2010. Otherwise healthy. Social/family history reviewed and noncontributory Physical exam: Alert and oriented well-developed well-nourished no acute distress cheerful and cooperative. Afebrile, vital signs normal Head atraumatic. PERRLA, fundi benign, ENT clear Neck without tenderness or deformity, full range of motion without pain. No bruits masses or nodes Lungs clear to P&A, full breath sounds throughout bilaterally, no rib cage or chest wall tenderness or deformity CV regular without murmur rub or gallop pulses full and symmetric no JVD or edema no bruits Abdomen soft nontender without mass or organomegaly. No CVAT Neurological C2 to 12 intact. Strength full and symmetric. No focal sensory or motor deficits. Gait is mildly impaired has a pain in the right hip Extremities: There is no deformity or bruising of the right hip. There is good range of motion, except at the extreme of internal rotation, with there is some pain or limitation. The left knee shows mild soft tissue swelling, no effusion, no deformity, patella and patellar retinaculum intact and nontender, no stress tenderness or laxity of MCL or LCL, Lockman negative no popliteal masses or tenderness. No posterior calf tenderness or cords. LS spine: No point tenderness over the vertebrae. Maintenance of normal lumbar lordosis. No inflammation or bruising. Impression: Multiple contusions, knee sprain, rule out fracture Plan: X-rays of the left knee, right hip, and LS-spine are negative. Patient undergoing further evaluation by Dr. Dodson, supervisory it specialist, who was called from the operating room. He sees no sign of serious injury. Toradol administered for symptomatic relief. Rest, Tylenol or Motrin, and orthopedic follow-up as directed. Adequately ambulatory upon discharge to follow-up as recommended. Improved after Toradol administration Past History - Past Medical History Allergies/Adverse Reactions: Allergies Allergy/AdvReac Type Severity Reaction Status Date / Time Penicillins Allergy Issues Verified 02/14/18 10:52 with breathing codeine AdvReac Vomiting Verified 02/14/18 10:52 Home Medications: Ambulatory Orders Pantoprazole Sodium [Protonix -] 40 mg PO DAILY 02/13/18 Anemia: No Asthma: No Cancer: No Cardiac Disorders: No (hx of MVP) CVA: No COPD: No CHF: No Dementia: No Diabetes: No GI Disorders: Yes (Diverticulitis) Disorders: No HTN: No Hypercholesterolemia: No Liver Disease: No Seizures: No Thyroid Disease: No - Surgical History Abdominal Surgery: No Appendectomy: No Cardiac Surgery: No Cholecystectomy: No Lung Surgery: No Neurologic Surgery: No Orthopedic Surgery: Yes (bilateral TKR) - Suicide/Smoking/Psychosocial Hx Smoking History: Never smoked Have you smoked in the past 12 months: No Number of Cigarettes Smoked Daily: 0 Hx Alcohol Use: No Drug/Substance Use Hx: No Substance Use Type: None Hx Substance Use Treatment: No *Physical Exam - Vital Signs Last Vital Signs Temp Pulse Resp BP Pulse Ox 98.7 F 83 18 135/80 100 02/14/18 10:52 02/14/18 10:52 02/14/18 10:52 02/14/18 10:52 02/14/18 10:52 *DC/Admit/Observation/Transfer Diagnosis at time of Disposition: Multiple contusions Knee sprain Qualifiers: Encounter type: initial encounter Involved ligament of knee: unspecified ligament Laterality: left Qualified Code(s): S83.92XA - Sprain of unspecified site of left knee, initial encounter - Discharge Dispostion Disposition: HOME Condition at time of disposition: Stable Decision to Admit order: No - Referrals Referrals: Rajinder Alejandro MD [Staff Physician] - - Patient Instructions Printed Discharge Instructions: DI for Knee Sprain, DI for Contusion Additional Instructions: Rest, ice, Tylenol or Advil as needed. See orthopedist if symptoms persist 3-5 days for recheck. Return to ER if symptoms worsen or additional serious symptoms develop. - Post Discharge Activity
[2018-02-14] MEDS ORDERED: KETOROLAC TROMETHAMINE 60 MG/2 ML VIAL IM ONE (13:00)
[2018-02-14] MEDS ORDERED: KETOROLAC TROMETHAMINE 60 MG/2 ML VIAL ONE (13:07)
== END 2018-02-14 13:20 | disposition home or self-care (01) ==
LOC: FER 10:51
PROC: 3E0233Z Introduction of Anti-inflammatory into Muscle, Percutaneous Approach (ICD-10-PCS; principal; 2018-02-14)
DX: S83.92XA Sprain of unspecified site of left knee, initial encounter (principal); T14.8XXA Other injury of unspecified body region, initial encounter; W01.0XXA Fall on same level from slipping, tripping and stumbling without subsequent striking against object, initial encounter; Y93.89 Activity, other specified; Y92.9 Unspecified place or not applicable; Z96.653 Presence of artificial knee joint, bilateral; K57.90 Diverticulosis of intestine, part unspecified, without perforation or abscess without bleeding
CPT/HCPCS: 72100-TC-FY; 73523-TC-FY; 73560-TC-LT-FY; 99283-25

== ENCOUNTER 2018-02-17 10:42 | Emergency (ER) | payer BC ==
[2018-02-17 10:53] VITALS: BP 128/51; PULSE 78; TEMP 98.6; BMI 29.9
[2018-02-17] MEDS ORDERED: SODIUM CHLORIDE 1,000 ML IV STA ×2 (10:58→12:14)
--- NOTE | 2018-02-17 10:58 | PDOC ---
History of Present Illness - General Chief Complaint: Nausea/Vomiting Stated Complaint: GI UPSET Time Seen by Provider: 02/17/18 10:58 - History of Present Illness Initial Comments: 02/17/18 10:59 Chief complaint: Vomiting and diarrhea History of present illness: Nausea and vomiting Monday night, extending into morning. This has resolved. However, diarrhea has developed, with multiple loose yellow watery stools for several days. Taking by mouth fluids but still feels "dehydrated". Review of systems: No fever/chills, headache, URI symptoms, sore throat, cough, chest pain, shortness of breath, abdominal pain, hematemesis, melena, bloody stool. No dysuria or other urinary tract symptoms, no vaginal bleeding or discharge. Denies dizziness, lightheadedness, or orthostatic symptoms. Past medical history: Recent fall with bruising of the right hip. X-rays were negative and improving. Otherwise healthy, no current medical or surgical problems, no medications. Postmenopausal. Social history: Attended a graduation on Monday, several others at the event have GI symptoms. No tobacco alcohol or nonprescription drugs. Active and without disability Family history: Significant for diabetes and IBS. No coronary artery disease or cancer Physical exam: Alert and oriented well-developed well-nourished no acute distress cheerful and cooperative Afebrile, vital signs normal No pallor or icterus. PERRLA, ENT clear Neck supple without bruit mass or nodes Lungs clear with full breath sounds bilaterally CV S1 and S2 normal without murmur rub or gallop pulses full and symmetric no JVD or edema no bruits 90 and regular Abdomen nondistended. Bowel sounds normal. Soft without masses tenderness organomegaly. No CVAT Neurological intact Skin clear, no rash, adequate turgor Extremities no CCE Impression: Viral gastroenteritis, mild dehydration. No sign of acute abdomen or obstruction. Plan: CBC and chemistries, intravenous hydration, antiemetic, and antidiarrheal. Further evaluation and treatment pending results of lab work. Past History - Past Medical History Allergies/Adverse Reactions: Allergies Allergy/AdvReac Type Severity Reaction Status Date / Time Penicillins Allergy Issues Verified 02/14/18 10:52 with breathing codeine AdvReac Vomiting Verified 02/14/18 10:52 Home Medications: Ambulatory Orders Pantoprazole Sodium [Protonix -] 40 mg PO DAILY 02/13/18 Anemia: No Asthma: No Cancer: No Cardiac Disorders: No (hx of MVP) CVA: No COPD: No CHF: No Dementia: No Diabetes: No GI Disorders: Yes (Diverticulitis) Disorders: No HTN: No Hypercholesterolemia: No Liver Disease: No Seizures: No Thyroid Disease: No - Surgical History Abdominal Surgery: No Appendectomy: No Cardiac Surgery: No Cholecystectomy: No Lung Surgery: No Neurologic Surgery: No Orthopedic Surgery: Yes (bilateral TKR) - Suicide/Smoking/Psychosocial Hx Smoking History: Never smoked Have you smoked in the past 12 months: No Number of Cigarettes Smoked Daily: 0 Hx Alcohol Use: No Drug/Substance Use Hx: No Substance Use Type: None Hx Substance Use Treatment: No *Physical Exam - Vital Signs Last Vital Signs Temp Pulse Resp BP Pulse Ox 98.6 F 78 16 128/51 98 02/17/18 10:44 02/17/18 10:44 02/17/18 10:44 02/17/18 10:44 02/17/18 10:44 ED Treatment Course - LABORATORY CBC & Chemistry Diagram: 02/17/18 11:00 02/17/18 11:00 Medical Decision Making - Medical Decision Making 02/17/18 12:25 Labs reviewed: No significant abnormalities other than a slightly decreased potassium of 3.3. Oral supplementation was administered. There is no sign of significant dehydration and no elevated white count. 02/17/18 14:37 Patient feels much better. There is no nausea vomiting or diarrhea since admission. There is no abdominal pain and abdominal exam remains benign. Taking oral fluids well. Continue symptomatic treatment, high potassium diet for several days, and recheck potassium primary physician. Fully ambulatory and in no pain or other distress upon discharge with to follow-up as directed *DC/Admit/Observation/Transfer Diagnosis at time of Disposition: Viral gastroenteritis - Discharge Dispostion Disposition: HOME Condition at time of disposition: Improved Decision to Admit order: No - Referrals Referrals: Ela Redmond MD [Primary Care Provider] - 2 Days - Patient Instructions Printed Discharge Instructions: DI for Diarrhea and Traveler's Diarrhea -- Adult, DI for Vomiting -- Adult, High-Potassium Diet Additional Instructions: Use Zofran as prescribed for nausea or vomiting Use Imodium for recurrent diarrhea If symptoms persist or worsen, return to emergency room or consult your primary physician immediately. Drink plenty of liquids and eat foods with high potassium for several days. Recheck potassium levels at your next PCP visit. - Post Discharge Activity
[2018-02-17] MEDS ORDERED: ONDANSETRON 4 MG/2 ML VIAL IVPB ONE (10:59)
[2018-02-17] MEDS ORDERED: LOPERAMIDE HCL 1 MG/5 ML UNIT DOSE CUP PO ONE (10:59)
[2018-02-17 11:11] LABS: BASO % 0.5 % (0-2.0); EOS % 1.2 % (0-4.5); HEMATOCRIT 38.4 % (32.4-45.2); HEMOGLOBIN 13.2 GM/dl (10.7-15.3); LYMPH % 20.6 % (8-40); MCHC 34.4 g/dl (32.0-36.0); MEAN CELL VOLUME 87.3 fl (80-96); MEAN PLT VOLUME 9.8 fl (7.5-11.1); MONO % 6.7 % (3.8-10.2); PLATELET COUNT 190 K/MM3 (134-434); RDW 12.9 % (11.6-15.6); WHITE BLOOD COUNT 5.3 K/mm3 (4.0-10.8)
[2018-02-17] MEDS ORDERED: ONDANSETRON 4 MG/2 ML VIAL ONE (11:17)
[2018-02-17 11:26] LABS: ALBUMIN 3.8 g/dl (3.5-5.0); ALK PHOS 50 U/L (32-92); ANION GAP 5 (8-16); BLOOD UREA NITROGEN 12 mg/dl (7-18); CALCIUM 8.7 mg/dl (8.4-10.2); CHLORIDE 107 mmol/L (98-107); CO2 25 mmol/L (22-28); GLUCOSE,RANDOM 111 mg/dl (74-106); POTASSIUM 3.3 mmol/L (3.5-5.1); SGOT/AST 31 U/L (10-42); SGPT/ALT 46 U/L (10-40); SODIUM 137 mmol/L (136-145); TOT PROT 6.8 g/dl (6.4-8.3)
[2018-02-17 11:39] LABS: BILIRUBIN,TOTAL < 0.5 mg/dl (0.2-1.0); CREATININE < 0.8 mg/dl (0.6-1.3)
[2018-02-17] MEDS ORDERED: POTASSIUM CHLORIDE TABS 20 MEQ TABLET.ER (FP) PO ONE ×2 (12:19→12:25)
[2018-02-17] MEDS ORDERED: POTASSIUM CHLORIDE ORAL LIQUID 20 MEQ/15 ML ONE (12:21)
[2018-02-17] MEDS ORDERED: POTASSIUM CHLORIDE ORAL LIQUID 20 MEQ/15 ML PO ONE (12:21)
== END 2018-02-17 13:38 | disposition home or self-care (01) ==
LOC: FER 10:42 → SUPCPDRO 10:42 → FER 13:38
PROC: 3E033GC Introduction of Other Therapeutic Substance into Peripheral Vein, Percutaneous Approach (ICD-10-PCS; principal; 2018-02-17)
PROC: 3E0337Z Introduction of Electrolytic and Water Balance Substance into Peripheral Vein, Percutaneous Approach (ICD-10-PCS; 2018-02-17)
DX: R11.2 Nausea with vomiting, unspecified (principal); A08.4 Viral intestinal infection, unspecified; E11.9 Type 2 diabetes mellitus without complications; K58.9 Irritable bowel syndrome, unspecified; Z96.653 Presence of artificial knee joint, bilateral
CPT/HCPCS: 36415; 80053; 85025; 99282-25; J7030

== ENCOUNTER 2018-03-21 08:49 | Day surgery (SDC) | payer BC ==
[2018-02-13 11:57] VITALS: BMI 29.8
[2018-03-21] MEDS ORDERED: PROPOFOL 20 ML ONE ×2 (09:13)
[2018-03-21] MEDS ORDERED: MIDAZOLAM HCL 2 MG/2 ML SINGLE DOSE VIAL ONE (09:55)
[2018-03-21 11:07] VITALS: TEMP 97.8
[2018-03-21 11:22] VITALS: BP 109/67; PULSE 68
== END 2018-03-21 11:50 | disposition home or self-care (01) ==
LOC: FASU-ENDO 08:49
PROVIDERS: ATTEND Internal Medicine Gastroenterology
PROC: 0DB58ZX Excision of Esophagus, Via Natural or Artificial Opening Endoscopic, Diagnostic (ICD-10-PCS; 2018-03-21)
PROC: 0DJD8ZZ Inspection of Lower Intestinal Tract, Via Natural or Artificial Opening Endoscopic (ICD-10-PCS; 2018-03-21)
PROC: 0DB98ZX Excision of Duodenum, Via Natural or Artificial Opening Endoscopic, Diagnostic (ICD-10-PCS; principal; 2018-03-21 10:10)
PROC: 0DB68ZX Excision of Stomach, Via Natural or Artificial Opening Endoscopic, Diagnostic (ICD-10-PCS; 2018-03-21 10:10)
DX: K31.7 Polyp of stomach and duodenum (principal); K57.30 Diverticulosis of large intestine without perforation or abscess without bleeding; K64.1 Second degree hemorrhoids; K29.50 Unspecified chronic gastritis without bleeding; K29.30 Chronic superficial gastritis without bleeding; K20.9 Esophagitis, unspecified

== ENCOUNTER 2021-06-15 06:43 | Emergency (ER) | payer BC ==
[2021-06-15 06:54] VITALS: TEMP 97.9; BMI 30.4
[2021-06-15] MEDS ORDERED: FAMOTIDINE 20 MG/50 ML IVPB 20 MG/50 ML MG IVPB ONE ×2 (07:19→07:43)
[2021-06-15] MEDS ORDERED: SODIUM CHLORIDE 1,000 ML IV STA (07:39)
[2021-06-15 07:54] LABS: BASO % 1.9 % (0-2.0); HEMATOCRIT 38.3 % (32.4-45.2); HEMOGLOBIN 12.4 GM/dl (10.7-15.3); LYMPH % 25.2 % (8-40); MCHC 32.5 g/dl (32.0-36.0); MEAN CELL VOLUME 89.4 fl (80-96); MEAN PLT VOLUME 8.8 fl (7.5-11.1); MONO % 5.7 % (3.8-10.2); NEUT % 66.2 % (42.8-82.8); PLATELET COUNT 181 10^3/uL (134-434); RBC 4.29 M/mm3 (3.60-5.2); RDW 13.3 % (11.6-15.6); WHITE BLOOD COUNT 5.9 K/mm3 (4.0-10.8)
[2021-06-15 08:00] LABS: ALBUMIN 3.8 g/dl (3.4-5.0); BILIRUBIN,TOTAL 0.6 mg/dl (0.2-1); CREATININE 0.7 mg/dl (0.55-1.3); TOT PROT 6.5 g/dl (6.4-8.2)
[2021-06-15 12:40] VITALS: BP 113/39; PULSE 70
== END 2021-06-15 14:27 | disposition home or self-care (01) ==
LOC: FER 06:43
PROC: 3E033GC Introduction of Other Therapeutic Substance into Peripheral Vein, Percutaneous Approach (ICD-10-PCS; principal; 2021-06-15)
PROC: 3E0337Z Introduction of Electrolytic and Water Balance Substance into Peripheral Vein, Percutaneous Approach (ICD-10-PCS; 2021-06-15)
DX: R07.89 Other chest pain (principal)
CPT/HCPCS: 36415; 71045-TC-FY; 80053; 82550; 84484; 85025; 93005; 99285-25; C9803; U0003; U0005

== ENCOUNTER 2024-04-29 20:17 | Emergency (ER) | payer BC ==
[2024-04-29 20:42] VITALS: BP 121/64; PULSE 62; RESP 20; TEMP 98
== END 2024-04-29 21:12 | disposition home or self-care (01) ==
LOC: FER 20:17
DX: S06.0X0A Concussion without loss of consciousness, initial encounter (principal); R11.0 Nausea; W10.9XXA Fall (on) (from) unspecified stairs and steps, initial encounter
CPT/HCPCS: 70450-TC; 99284-25